=== PATIENT | male | born 1970 | race Hispanic/Latino ===

== ENCOUNTER 2022-08-25 08:57 | Emergency (ER) | payer BC, OTHER ==
[~2022-08-25] VITALS: Ht 182.9 cm; Wt 99.8 kg
[~2022-08-25 08:57] MED LIST: TAGAMET300 MG
[2022-08-25] MEDS ORDERED: LIDOCAINE HCL 1% 2 ML AMP ONE (09:09)
[2022-08-25] MEDS ORDERED: AMOX TR-K CLV1 EAC2 PO (09:11)
[2022-08-25] MEDS ORDERED: DOXYCYCLINE HY100 MG PO (09:11)
[2022-08-25] MEDS ORDERED: CEFTRIAXONE 1 GM VIAL IM ONE (09:15)
[2022-08-30] MEDS ORDERED: FENOFIBRATE134 MG PO (12:35)
[2022-08-30] MEDS ORDERED: ATORVASTATIN CA20 MG PO (12:35)
[2022-08-30] MEDS ORDERED: METFORMIN HCL500 MG PO (12:35)
[2022-08-30] MEDS ORDERED: HUMALOG SC (12:35)
[2022-08-30] MEDS ORDERED: TRESIBA100 UNIT/1 SC (12:35)
[2022-08-30] MEDS ORDERED: LOSARTAN POTASS25 MG PO (12:35)
== END 2022-08-25 09:30 | disposition home or self-care (01) ==
LOC: ER 09:11
DX: L03.115 Cellulitis of right lower limb (principal); E11.9 Type 2 diabetes mellitus without complications; Z87.19 Personal history of other diseases of the digestive system
CPT/HCPCS: 99283; J0696; J2001